=== PATIENT | male | born 1980 | race Hispanic/Latino ===

== ENCOUNTER 2018-04-17 20:24 | Emergency (ER) | payer OTHER ==
[2018-04-17 20:24] VITALS: BMI 42.2
[2018-04-17] MEDS ORDERED: Sodium Chloride 0.9% 1,000 ML IV STA (20:59)
[2018-04-17] MEDS ORDERED: DiphenhydrAMINE 50 mg/ml Inj IVP STA (20:59)
--- NOTE | 2018-04-17 20:59 | ED PDOC ---
Arrival/HPI - General Chief Complaint: Abnormal Skin Integrity Time Seen by Provider: 04/17/18 20:28 Historian: Patient - History of Present Illness Narrative History of Present Illness (Text): 04/17/18 20:53 37 y/o male, pmh including tinea cruris, nkda, c/o whole body itching rash x 4 days. Pt. stated that he was exposed to the plan and been drinking the mixed drinks, been having whole body itching, more painful on the rt. forearm region, non-dm, stated that he was itching and scratching alot and now more pain on the rt forearm itching from the scratching, no fever or chills, no night sweat, no rash, no numbness or tingling. Past Medical History - Provider Review Nursing Documentation Reviewed: Yes - Travel History If Yes, travel location?: [place] - Past History Past History: No Previous - Infectious Disease Hx of Infectious Diseases: None - Tetanus Immunization Tetanus Immunization: Up to Date - Past Medical History Past Medical History: No Previous - Psychiatric Hx Depression: No Hx Emotional Abuse: No Hx Physical Abuse: No Hx Substance Use: Yes (daily) - Past Surgical History Past Surgical History: No Previous - Surgical History Hx Tonsillectomy: Yes - Anesthesia Hx Anesthesia: Yes Hx Anesthesia Reactions: No Hx Malignant Hyperthermia: No - Suicidal Assessment Feels Threatened In Home Enviroment: No Family/Social History - Physician Review Nursing Documentation Reviewed: Yes Family/Social History: Unknown Family HX Smoking Status: Never Smoked Hx Alcohol Use: Yes (RARELY) Frequency of alcohol use: Socially Hx Substance Use: Yes (daily) Substance used: CANNABIS 5 yrs ago Hx Substance Use Treatment: No Allergies/Home Meds Allergies/Adverse Reactions: Allergies No Known Allergies Allergy (Verified 07/07/13 20:38) Review of Systems - Review of Systems Constitutional: absent: Fatigue, Fevers Eyes: absent: Vision Changes ENT: absent: Hearing Changes Respiratory: absent: SOB, Cough Cardiovascular: absent: Chest Pain Gastrointestinal: absent: Abdominal Pain, Nausea, Vomiting Skin: Rash, Pruritis, Cellulitis. absent: Skin Lesions, Laceration, Abscess, Ulcer Neurological: absent: Headache, Dizziness Psychiatric: absent: Anxiety, Depression, Suicidal Ideation Physical Exam Vital Signs Reviewed: Yes Vital Signs Temp Pulse Resp BP Pulse Ox 04/17/18 20:42 98.6 F 97 H 19 136/83 97 Temperature: Afebrile Blood Pressure: Normal Pulse: Regular Respiratory Rate: Normal Appearance: Positive for: Well-Appearing, Non-Toxic, Comfortable Pain Distress: Mild Mental Status: Positive for: Alert and Oriented X 3 - Systems Exam Head: Present: Atraumatic, Normocephalic Pupils: Present: PERRL Extroacular Muscles: Present: EOMI Conjunctiva: Present: Normal Mouth: Present: Moist Mucous Membranes Neck: Present: Normal Range of Motion Respiratory/Chest: Present: Clear to Auscultation, Good Air Exchange. No: Respiratory Distress, Accessory Muscle Use Cardiovascular: Present: Regular Rate and Rhythm, Normal S1, S2. No: Murmurs Abdomen: No: Tenderness, Distention, Peritoneal Signs Back: Present: Normal Inspection Upper Extremity: Present: Normal Inspection, Other (RUE: visible papule rash with mild yellow clear fluid appear to be poison mellissa dermatitis but with erythematous involvement, no streaking, no ecchymosis.l ). No: Cyanosis, Edema Lower Extremity: Present: Normal Inspection. No: Edema Neurological: Present: GCS=15, CN II-XII Intact, Speech Normal Skin: Present: Warm, Dry, Rashes (lower back LS spine region and lt. gluteal region noted to have blanchable papule rash as well. ), Normal Color Psychiatric: Present: Alert, Oriented x 3, Normal Insight, Normal Concentration Medical Decision Making ED Course and Treatment: 04/17/18 21:04 Differential: Poison Mellissa dermatitis vs. allergic reaction vs. secondary bacterial infection -CBC -IV decadron/benadryl/pepcid/ancef 2gm -observe and reassess 04/17/18 23:03 -Labs are non-significant with no elevation of wbc -Rash significantly resolved with IV medications, and pt. feels much better after IV medication -Pt. feels well, all labs and precautious explained, advised follow up check of the rash with pmd 2 days. -Discharge home with keflex, benadryl, topical steroid cream, motrin, keep the skin cool and dry, follow up with your own pmd and professor of biological sciences within 2 days, return to the ER for any new or worsening signs or symptoms. - Lab Interpretations Lab Results: 04/17/18 21:22 Lab Results 07/08/18 21:22: WBC 5.8, RBC 5.14, Hgb 15.2, Hct 43.2, MCV 84.0, MCH 29.6, MCHC 35.2, RDW 14.7 H, Plt Count 168, MPV 10.3, Gran % 54.8, Lymph % (Auto) 32.3, Warren % (Auto) 6.8 H, Eos % (Auto) 6.1 H, Baso % (Auto) 0.0, Gran # 3.16, Lymph # (Auto) 1.9, Warren # (Auto) 0.4, Eos # (Auto) 0.4, Baso # (Auto) 0.00 I have reviewed the lab results: Yes - Medication Orders Current Medication Orders: Discontinued Medications Dexamethasone (Decadron Inj) 10 mg IVP STAT STA Stop: 04/17/18 21:00 Last Admin: 04/17/18 21:39 Dose: 10 mg IVP Administration Document 04/17/18 21:39 AD (Rec: 04/17/18 21:39 AD [facility] [id number]) Charges for Administration # of IVP Administrations 1 Diphenhydramine HCl (Benadryl) 50 mg IVP STAT STA Stop: 04/17/18 21:00 Last Admin: 04/17/18 21:39 Dose: 50 mg IVP Administration Document 04/17/18 21:39 AD (Rec: 04/17/18 21:39 AD [facility] [id number]) Charges for Administration # of IVP Administrations 1 Famotidine (Pepcid) 20 mg IVP STAT STA Stop: 04/17/18 21:00 Last Admin: 04/17/18 21:39 Dose: 20 mg IVP Administration Document 04/17/18 21:39 AD (Rec: 04/17/18 21:39 AD [facility] [id number]) Charges for Administration # of IVP Administrations 1 Sodium Chloride (Sodium Chloride 0.9%) 1,000 mls @ 999 mls/hr IV .Q1H1M STA Stop: 04/17/18 21:59 Last Admin: 04/17/18 21:22 Dose: 999 mls/hr eMAR Start Stop Document 04/17/18 21:22 IRON (Rec: 04/17/18 21:22 IRON [id number]) Intravenous Solution Start Date 04/17/18 Start Time 21:22 Cefazolin Sodium 2 gm/ Sodium (Chloride) 100 mls @ 200 mls/hr IVPB STAT STA Stop: 04/17/18 21:34 Last Admin: 04/17/18 21:57 Dose: 200 mls/hr eMAR Start Stop Document 04/17/18 21:57 AD (Rec: 04/17/18 21:57 AD [id number]) Intravenous Solution Start Date 04/17/18 Start Time 21:57 Ketorolac Tromethamine (Toradol) 30 mg IVP STAT STA Stop: 04/17/18 22:06 Last Admin: 04/17/18 22:22 Dose: 30 mg MAR Pain Assessment Document 04/17/18 22:22 AD (Rec: 04/17/18 22:22 AD [id number]) Pain Reassessment Is this a pain reassessment? No Description Intensity of Pain at present 5 IVP Administration Document 04/17/18 22:22 AD (Rec: 04/17/18 22:22 AD [id number]) Charges for Administration # of IVP Administrations 1 - PA / COPY READER / Resident Statement MD/DO has reviewed & agrees with the documentation as recorded. Disposition/Present on Arrival - Present on Arrival Any Indicators Present on Arrival: No History of DVT/PE: No History of Uncontrolled Diabetes: No Urinary Catheter: No History of Decub. Ulcer: No History Surgical Site Infection Following: None - Disposition Have Diagnosis and Disposition been Completed?: Yes Diagnosis: Dermatitis Disposition: HOME/ ROUTINE Disposition Time: 21:05 Patient Plan: Discharge Patient Problems: Current Active Problems Problem Status Onset Dermatitis Acute Condition: GOOD Discharge Instructions (ExitCare): Cellulitis (ED) Additional Instructions: -Discharge home with keflex, benadryl, topical steroid cream, motrin, keep the skin cool and dry, follow up with your own pmd and professor of biological sciences within 2 days, return to the ER for any new or worsening signs or symptoms. Prescriptions: Cephalexin [Keflex] 500 mg PO QID PRN #40 capsule PRN Reason: Other Clotrimazole/Betamethasone [Lotrisone] 1 appl EXT BID #60 g DiphenhydrAMINE [Benadryl] 50 mg PO QID PRN #30 cap PRN Reason: Other Ibuprofen [Motrin Tab] 600 mg PO QID PRN #30 tab PRN Reason: Other Referrals: Tamra Rivers MD [Staff Provider] - Follow up with primary Forms: WORK NOTE
[2018-04-17] MEDS ORDERED: ceFAZolin 2 GM in Sodium Chloride 0.9% 100 ML IVPB STA (21:05)
[2018-04-17 21:25] LABS: EOS # 0.4 (0.0-0.7); EOS % 6.1 % (1.5-5.0); GRAN # 3.16 (1.4-6.5); GRAN % 54.8 % (50.0-68.0); HEMOGLOBIN 15.2 g/dL (14.0-18.0); LYMPH # 1.9 (1.2-3.4); LYMPH % 32.3 % (22.0-35.0); MEAN CORPUSCULAR HEMOGLOBIN 29.6 pg (25.0-35.0); MEAN CORPUSCULAR HGB CONC 35.2 g/dl (31.0-37.0); MEAN PLATELET VOLUME 10.3 fl (7.0-11.0); MONO # 0.4 (0.1-0.6); MONO % 6.8 % (1.0-6.0); RBC 5.14 10^6/uL (3.5-6.1); RED CELL DISTRIBUTION WIDTH 14.7 % (11.5-14.5); WHITE BLOOD COUNT 5.8 10^3/ul (4.5-11.0)
[2018-04-17 23:21] VITALS: BP 117/64; PULSE 74; RESP 18; TEMP 98.5; O2SAT 99
== END 2018-04-17 23:10 | disposition home or self-care (01) ==
LOC: ED 20:24
DX: L30.9 Dermatitis, unspecified (principal)
CPT/HCPCS: 85025; 96374; 96375; 99284; J0690; J1100; J1200; J1885; J7030